=== PATIENT | male | born 2000 | race Caucasian/White ===

== ENCOUNTER 2023-10-01 07:35 | Outpatient (REF) | payer BC, OTHER, SELFPAY ==
--- NOTE | ~2023-10-01 | MR_ITS ---
EXAMINATION: MR HAND WITHOUT CONTRAST, LEFT CLINICAL INFORMATION: Sports injury (baseball). Weak carrot buncher. Pain. COMPARISON: None available. TECHNIQUE: Multiplanar MR imaging was obtained through the left hand without contrast on a 1.5 Gaby magnet. FINDINGS: There is a nondisplaced transverse fracture through the base of the hook of the hamate with marked associated edema signal throughout both the hook fragment and the remainder of the hamate. Slight cortical thickening is noted at the margins of the fracture. There is associated surrounding soft tissue edema signal. No additional fractures are identified. Joints appear well preserved. No significant articular cartilage loss. No joint effusions or synovitis. Hand musculature is normal in signal intensity aside from the mild reactive edema signal adjacent to the aforementioned hamate fracture. Tendons are intact without tears, tendinosis, or tenosynovitis. Neurovascular structures are grossly unremarkable. MR/MR hand LT wo con IMPRESSION: Nondisplaced transverse fracture at the base of the hook of the hamate.
== END 2023-10-01 07:36 | disposition home or self-care (01) ==
LOC: HO.MRI 07:35
PROVIDERS: Visit Provider Family Medicine
DX: M79.642 Pain in left hand (principal)
CPT/HCPCS: 73218